=== PATIENT | male | born 1985 | race Hispanic/Latino ===

== ENCOUNTER 2017-02-14 17:27 | Emergency (ER) | payer OTHER ==
[2017-02-14 17:37] VITALS: BP 143/73; PULSE 88; RESP 18; TEMP 97.7; O2SAT 99
[2017-02-14] MEDS ORDERED: Sodium Chloride 0.9% 1,000 ML IV STA ×2 (17:54→18:41)
--- NOTE | 2017-02-14 18:03 | ED PDOC ---
HPI: Abdomen Time Seen by Provider: 02/14/17 17:47 Chief Complaint (Nursing): Abdominal Pain Chief Complaint (Provider): Abdominal Pain History Per: Patient History/Exam Limitations: no limitations Onset/Duration Of Symptoms: Hrs (x5) Additional Complaint(s): Daren Carreno is a 31 year old male who presents to the emergency department with a complaint of right flank pain that radiates to his right abdomen associated with nausea and dysuria ongoing since 13:00 today. Denied any fever, chills, or vomiting. Notably, patient stated that his father has a history of kidney stones but denied having kidney stones himself. PMD: none provided Past Medical History Reviewed: Historical Data, Nursing Documentation, Vital Signs Vital Signs: Last Vital Signs Temp 97.7 F 02/14/17 17:34 Pulse 88 02/14/17 17:34 Resp 18 02/14/17 17:34 BP 143/73 02/14/17 17:34 Pulse Ox 99 02/14/17 19:18 - Medical History PMH: No Chronic Diseases - Surgical History Surgical History: No Surg Hx - Family History Family History: States: Unknown Family Hx - Home Medications Home Medications: Ambulatory Orders Medication Instructions Recorded Nitrofurantoin Macrocrystals 100 mg PO BID #14 cap 02/14/17 [Macrobid] Tamsulosin [Flomax] 0.4 mg PO DAILY #14 cap 02/14/17 - Allergies Allergies/Adverse Reactions: Allergies Allergy/AdvReac Type Severity Reaction Status Date / Time minocycline Allergy ANAPHYLAXIS Verified 02/14/17 17:34 Review of Systems ROS Statement: Except As Marked, All Systems Reviewed And Found Negative Constitutional: Negative for: Fever, Chills Gastrointestinal: Positive for: Nausea, Abdominal Pain (radiated from right flank pain), Other (right flank pain). Negative for: Vomiting Genitourinary Male: Positive for: Dysuria Physical Exam - Reviewed Nursing Documentation Reviewed: Yes Vital Signs Reviewed: Yes - Physical Exam Appears: Positive for: Well, Non-toxic, Uncomfortable (renal colic), In Acute Distress Head Exam: Positive for: ATRAUMATIC, NORMAL INSPECTION, NORMOCEPHALIC Gastrointestinal/Abdominal: Positive for: Tenderness (slight RLQ pain and right flank pain) Extremity: Positive for: Normal ROM. Negative for: Pedal Edema, Deformity Neurologic/Psych: Positive for: Alert, plastic surgeon II-XII, Oriented - Laboratory Results Result Diagrams: 02/14/17 18:00 02/14/17 18:00 - ECG O2 Sat by Pulse Oximetry: 99 (RA) Pulse Ox Interpretation: Normal Medical Decision Making Medical Decision Making: Initial Impression: Right flank pain; rule out kidney stones Initial Plan: * CT ABD & pelvis without contrast * Labs * Drug screen, urine * Lipase * Toradol 30mg IV * NS 1,000 ml IV per 999 mls/hr * Zofran 4mg IV * Urine C&S * Urinalysis Time: 1900 Upon provider re-evaluation patient is feeling better, tolerating PO and requires no further treatment in the ED at this time. Patient will be discharged home with Rx for Macrobid 100mg and Flomax. Counseling was provided and all questions were answered regarding diagnosis and need for follow up with urologist. There is agreement to discharge plan. Return if symptoms persist or worsen. Clinical Impression: Kidney stones Scribe Attestation: Documented by Candy Morris, acting as a scribe for Bernie Hopkins MD. Provider Scribe Attestation: All medical record entries made by the Scribe were at my direction and personally dictated by me. I have reviewed the chart and agree that the record accurately reflects my personal performance of the history, physical exam, medical decision making, and the department course for this patient. I have also personally directed, reviewed, and agree with the discharge instructions and disposition. Disposition - Clinical Impression Clinical Impression: Abdominal pain, Kidney stone - Patient ED Disposition Is Patient to be Admitted: No Doctor Will See Patient In The: Office Counseled Patient/Family Regarding: Studies Performed, Diagnosis, Need For Followup, Rx Given - Disposition Referrals: [facility] [Outside] Haleigh Begum MD [Medical Doctor] - Disposition: Routine/Home Disposition Time: 19:00 Condition: IMPROVED Additional Instructions: follow up with urologist as instructed return to the ED with any worsening or concerning symptoms. Prescriptions: Nitrofurantoin Macrocrystals [Macrobid] 100 mg PO BID #14 cap Tamsulosin [Flomax] 0.4 mg PO DAILY #14 cap Instructions: Kidney Stones (ED), How to Strain Your Urine (ED)
[2017-02-14 18:05] LABS: BASO % 0.3 % (0.0-2.0); EOS % 0.5 % (0.0-4.0); HEMOGLOBIN 14.5 g/dL (12.0-18.0); LYMPH # 2.9 K/uL (1.0-4.3); LYMPH % 36.6 % (20.0-40.0); MEAN CELL VOLUME 91.5 fl (80.0-94.0); MEAN CORPUSCULAR HEMOGLOBIN 30.8 pg (27.0-31.0); MEAN CORPUSCULAR HGB CONC 33.7 g/dL (33.0-37.0); MEAN PLATELET VOLUME 9.2 fl (7.2-11.7); MONO # 0.7 K/uL (0.0-0.8); MONO % 8.3 % (0.0-10.0); NEUT # 4.3 K/uL (1.8-7.0); NEUT % 54.3 % (50.0-75.0); RBC 4.71 Mil/uL (4.40-5.90); RED CELL DISTRIBUTION WIDTH 13.2 % (11.5-14.5)
[2017-02-14 18:26] LABS: ALB/GLOB RATIO 1.6 (1.0-2.1); ALBUMIN 5.4 g/dL (3.5-5.0); ALT/SGPT 44 U/L (21-72); AST/SGOT 33 U/L (17-59); BLOOD UREA NITROGEN 22 mg/dl (9-20); GFR AFRICAN-AMERICAN > 60; GFR NON-AFRICAN AMERICAN > 60; LIPASE 64 U/L (23-300)
--- NOTE | 2017-02-14 18:37 | CT ---
PROCEDURE: CT Abdomen and Pelvis without Oral or IV contrast. HISTORY: right flank pain rule out stone COMPARISON: None available TECHNIQUE: Contiguous axial images of the abdomen and pelvis. No oral or IV contrast administered. Coronal and Sagittal reformats generated. Radiation dose: Total exam DLP = 503.32 mGy-cm. This CT exam was performed using one or more of the following dose reduction techniques: Automated exposure control, adjustment of the mA and/or kV according to patient size, and/or use of iterative reconstruction technique. FINDINGS: There is limited evaluation of the solid organs without the administration of IV contrast. LOWER THORAX: No visible consolidation, pleural effusion, or pneumothorax. LIVER: Unremarkable unenhanced appearance. GALLBLADDER AND BILE DUCTS: Unremarkable unenhanced appearance. PANCREAS: Unremarkable unenhanced appearance. SPLEEN: Unremarkable unenhanced appearance. ADRENALS: Unremarkable unenhanced appearance. KIDNEYS AND URETERS: No hydronephrosis or obstructing renal calculus. Minimal periureteral stranding noted on the right, possibly related to recently passed calculus. BLADDER: 3 mm punctate calculus in the dependent urinary bladder. REPRODUCTIVE: Unremarkable. APPENDIX: The appendix appears within normal limits of caliber. No secondary signs of acute appendicitis. BOWEL: The stomach is nondistended. Lack of oral contrast limits evaluation for bowel pathology. The bowel loops appear within normal limits of caliber without evidence of intestinal obstruction. PERITONEUM: No significant free fluid. No definite free air. LYMPH NODES: Scattered sub cm mesenteric and retroperitoneal lymph nodes, nonspecific. VASCULATURE: No aortic aneurysm. BONES: Bilateral L5 spondylolysis. OTHER FINDINGS: None. IMPRESSION: Minimal periureteral stranding noted on the right, possibly related to recently passed calculus. 3 mm punctate calculus is evident within the deep tendon urinary bladder.
[2017-02-14 18:52] LABS: SQUAMOUS EPITHIAL < 1 /hpf (0-5); URINE BACTERIA RARE (<OCC); URINE BILIRUBIN NEGATIVE (NEGATIVE); URINE BLOOD MODERATE (NEGATIVE); URINE CLARITY SLIGHTY-CLOUDY (Clear); URINE COLOR YELLOW (YELLOW); URINE GLUCOSE (UA) NEG (Normal); URINE LEUKOCYTE ESTERASE NEG Leu/uL (Negative); URINE NITRATE NEGATIVE (NEGATIVE); URINE PROTEIN 100 mg/dL (NEGATIVE); URINE UROBILINOGEN 0.2-1.0 mg/dL (0.2-1.0)
[2017-02-14 19:05] LABS: BARBITURATES, UR NEGATIVE (NEGATIVE); BENZODIAZEPINES, UR NEGATIVE (NEGATIVE); OPIATES, UR NEGATIVE (NEGATIVE); PHENCYCLIDINE, UR NEGATIVE (NEGATIVE)
== END 2017-02-14 19:23 | disposition home or self-care (01) ==
LOC: H.ER 17:27
DX: N20.1 Calculus of ureter (principal); Z88.0 Allergy status to penicillin